=== PATIENT | female | born 1945 | race Two or more races ===

== ENCOUNTER → 2021-06-13 08:00 | Outpatient (CLI) | payer OTHER ==
[~2021-06-13 08:00] MED LIST: GLIPI PO; JANU PO; NORVASC PO; OMEGA 3 1,0001 EACH PO; SINGULAIR10 MG PO; TRIPLEX PO
== END | disposition home or self-care (01) ==
LOC: LAB 08:00 → ADM 11:30 → CIR.AMB 06-20 07:00 → EDSTATUS 06-20 11:30
PROVIDERS: ATTEND Obstetrics & Gynecology Gynecology
DX: Z03.818 Encounter for observation for suspected exposure to other biological agents ruled out (principal)